=== PATIENT | female | born 1940 | race Caucasian/White ===

== ENCOUNTER 2019-07-15 10:06 | Emergency (ER) | payer OTHER ==
[~2019-07-15] VITALS: Ht 162.6 cm; Wt 68.0 kg
[~2019-07-15 10:06] MED LIST: CEL20 PO; CIPROFLOXACIN500 MG PO; EFF37 PO; LIPITOR40 MG PO; MOM PO; MP PO; SER25 PO; TYLENOL325 MG PO; XANAX0.25 MG PO; ZESTRIL5 MG PO
[2019-07-15 10:07] VITALS: Ht 162.6 cm; Wt 68.0 kg
[2019-07-15 12:37] VITALS: BP 130/68
== END 2019-07-15 12:00 | disposition home or self-care (01) ==
LOC: ED 10:06
DX: F03.90 Unspecified dementia, unspecified severity, without behavioral disturbance, psychotic disturbance, mood disturbance, and anxiety (principal); I10 Essential (primary) hypertension; F31.9 Bipolar disorder, unspecified; Z86.2 Personal history of diseases of the blood and blood-forming organs and certain disorders involving the immune mechanism; Z90.89 Acquired absence of other organs; Z90.710 Acquired absence of both cervix and uterus; Z98.890 Other specified postprocedural states; Z88.1 Allergy status to other antibiotic agents; Z88.8 Allergy status to other drugs, medicaments and biological substances